=== PATIENT | male | born 2000 | race Caucasian/White ===

== ENCOUNTER 2021-11-20 17:00 | Emergency (ER) | payer OTHER, SELFPAY ==
[2021-11-20] VITALS (7 sets, daily range): BP systolic 136–170; BP diastolic 80–111; PULSE 71–80; RESP 12–16; TEMP 36.4–36.9; O2SAT 96–100; BMI 22.4
--- NOTE | 2021-11-20 17:28 | EDS_ITS ---
HPI History of Present Illness HPI Narrative: Patient presents with right shoulder dislocation that occurred today. Patient states he was playing football and rates his arms to back down a past when he felt his shoulder dislocate. Patient states he has done this in the past. Patient denies any paresthesias or weakness. Patient denies any other injuries. Patient states his pain is aching. Patient states it is worse with any movement. Chief Complaint: Upper Extremity Injury Informant: patient Onset/Context/Timing Onset: Today Context: Sudden Onset Timing: Continuous Quality of Pain: Aching Location: Right shoulder Worsened by: Movement Relieved by: Rest Associated Symptoms Associated Symptoms: Negative for Parasthesia, Weakness or Loss of Funtion PFSH PFS Medical History (Updated 11/20/21 @ 19:[address] Dhruv Wong DO) No acute medical problems Home Medications NK 11/20/21 [History Last Taken Unknown] Allergy/AdvReac Type Severity Reaction Status Date / Time No Known Allergies Allergy Verified 11/20/21 17:05 Surgical History (Updated 11/20/21 @ 17:[address] Dhruv Wong DO) Hx of elbow surgery Social History Smoking Status: Never smoker ROS ROS ED Constitutional Constitutional ED: Denies chills or fever(s) Eyes Eyes: Denies blurry vision or change in vision ENT ENT ED: Denies rhinorrhea or sore throat Cardiovascular Cardiovascular: Denies chest pain or palpitations Respiratory/Chest Respiratory/Chest: Denies cough or dyspnea Gastrointestinal Gastrointestinal: Denies nausea or vomiting Genitourinary Genitourinary ED: Denies dysuria or hematuria Musculoskeletal Musculoskeletal: Denies back pain or neck pain Integumentary Denies abscess or rash Neurologic Neurologic: Denies headache(s) or weakness Allergic/Immunologic Allergic/Immunologic ED: Denies mouth swelling or urticaria EXAM Physical Exam Const Vital Signs: 11/20/21 17:02 Temperature 98.4 F Temperature Source Temporal Pulse Rate 75 Respiratory Rate 16 Blood Pressure 162/111 H Blood Pressure Mean 128 Pulse Ox 96 Oxygen Delivery Method Room Air Positive well nourished and well developed General Appearance ED: well developed and NAD HEENT Reports moist mucous membranes Neck full ROM and supple Extremity Extremity Narrative: There is tenderness and palpable deformity over the right shoulder. Range of motion was limited in all motions of the right shoulder secondary to pain. Strength is 5/5 in the radial, median, and ulnar areas. Sensation was intact to light touch in the radial, median, ulnar, and axillary areas. Radial pulses are equal bilaterally. Neuro oriented x3, CN's II-XII intact bilaterally, moves all extremities, no focal motor deficits and no sensory deficits noted Sensorium / Orientation: alert Motor Exam: strength 5/5 throughout Psych mental status grossly normal MDM MDM MDM Narrative Medical decision making narrative: Patient was given morphine initially. X-rays of the right shoulder were obtained. There are 2 views. On my interpretation, there is an anterior dislocation of the right glenohumeral joint. There is no acute fracture. Radiologist also interpreted the x-rays and agrees. Patient was placed on continuous cardiac and pulse oximeter monitors. Patient was advised of the b enefits and risks of sedation. Patient states he had a similar procedure done 1 month ago and had no problems with that. Patient was given the opportunity ask further questions. Patient had no further questions. Patient is agreeable to proceed with the procedure. Patient was given a total of 100 mg of propofol. The right shoulder was reduced using traction and countertraction. Patient tolerated the procedure well. Patient woke up immediately afterwards. Patient feels better. Repeat x-rays were obtained. There are 2 views. On my interpretation, there is no acute fracture or dislocation. The previous dislocation has been reduced. There is no avulsion fracture noted. There is no soft tissue swelling. Radiologist also interpreted the x-rays and agrees. Patient is feeling better on reevaluation. Patient was instructed to maintain the sling and swath. Patient was instructed to follow-up with his primary care physician in 5 to 7 days. Patient was also given a referral for orthopedics. Patient understood and was agreeable with the plan. All questions were answered. Procedures Procedural Sedation 1 (Initial Baseline): Consent Signed: Yes Any Problems With Anesthesia: No You/Your family experience fever (hyperthermia) w/anesthesia: No Sedation medication: Propofol Dose: 100 Route: IV Mallampati Score: Class I ASA Classification: I Other Procedures Procedure(s): Patient was placed on continuous cardiac and pulse oximeter monitors. Patient was advised of the benefits and risks of sedation. Patient states he had a similar procedure done 1 month ago and had no problems with that. Patient was given the opportunity ask further questions. Patient had no further questions. Patient is agreeable to proceed with the procedure. Patient was given a total of 100 mg of propofol. The right shoulder was reduced using traction and countertraction. Patient tolerated the procedure well. Patient woke up immediately afterwards. Patient feels better. Repeat x-rays were obtained. Patient was placed back in his sling. Patient was given a swath. Discharge Plan Triage Chief Complaint: Upper Extremity Injury ED Provider: Dhruv Wong Dx/Rx/DC Orders Clinical Impression: Anterior dislocation of right shoulder Instructions: ED Dislocation: Shoulder (Reduced) Prescriptions: No Action NK Primary Care Provider: Logan Camejo Referrals: Logan Camejo MD [Primary Care Provider] - 5-7 Days Liu Fragoso MD [Med Staff - Active Staff] - 3-5 Days Care Physician,No Primary [Non-Staff] - Disposition Disposition: Home, Self Care
--- NOTE | 2021-11-20 17:40 | RAD_ITS ---
STUDY: XR Shoulder Min 2 Views REASON FOR EXAM: Male, 21 years old. Injury/Pain TECHNIQUE: XR Shoulder Min 2 Views RIGHT COMPARISON: None. FINDINGS: Abnormal glenohumeral articulation. Normal acromioclavicular joint. Normal acromion. Normal humeral head and visualized proximal humerus. The soft tissue structures are unremarkable. Normal visualized pulmonary apex. RAD/Shoulder min 2 Views IMPRESSION: Shoulder dislocation Electronically Signed: Anthony Lui MD at 17:54 EDT ,
[2021-11-20] MEDS: Morphine 4 MG/ML Syringe IV (17:46)
--- NOTE | 2021-11-20 19:20 | RAD_ITS ---
STUDY: XR Shoulder Min 2 Views REASON FOR EXAM: Male, 21 years old. Injury/Pain TECHNIQUE: XR Shoulder Min 2 Views RIGHT COMPARISON: None. FINDINGS: Normal glenohumeral articulation. Normal acromioclavicular joint. Normal acromion. Normal humeral head and visualized proximal humerus. The soft tissue structures are unremarkable. Normal visualized pulmonary apex. RAD/Shoulder min 2 Views IMPRESSION: There are no acute findings of the shoulder. Electronically Signed: Anthony Lui MD at 19:29 EDT ,
== END 2021-11-20 20:03 | disposition home or self-care (01) ==
PROVIDERS: Emergency Provider Emergency Medicine; PCP Family Medicine; Visit Provider Emergency Medicine
DX: S43.014A Anterior dislocation of right humerus, initial encounter (principal); Y93.61 Activity, american tackle football
CPT/HCPCS: 73030; 96374; 96375; 99284; A4216